=== PATIENT | male | born 1995 | race African-American/Black ===

== ENCOUNTER 2019-02-18 23:39 | Emergency (ER) | payer OTHER, MEDICAID, SELFPAY ==
[2019-02-18 23:52] VITALS: BP 140/87; PULSE 68; RESP 14; TEMP 37.1; O2SAT 100; BMI 27.3
--- NOTE | 2019-02-19 00:24 | PC.NURSE ---
Pt refuses to speak to nursing staff. States I just have some things i want to talk to a doctor about.
--- NOTE | 2019-02-19 00:38 | ED_ITS ---
HPI - Fever General Chief Complaint: Fever Stated Complaint: feeling shivers/cold inside Time Seen by Provider: 02/19/19 00:24 Source: patient Mode of arrival: ambulatory Limitations: no limitations History of Present Illness HPI Narrative: Patient is 23-year-old male who presents with with a complaint he had body aches ongoing the last 2 days. Unsure if he had a fever he denies any sore throat belly pain cough shortness of breath chest pain. He says that his ?Man parts feel little weird he wants to make sure they are okay. He denies any gross pus or testicle pain. He states he does have some painful burning sensation at the urethra when he urinates. Related Data Allergies Allergy/AdvReac Type Severity Reaction Status Date / Time No Known Drug Allergies Allergy Verified 02/18/19 23:57 Review of Systems Review of Systems GENERAL: Denies chills, fatigue, malaise, fever, sweats, travel HEENT: Denies sinus pain, ear pain, sore throat, difficulty swallowing, neck pain RESPIRATORY: Denies dyspnea, cough, wheezing, hemoptysis, sputum. CARDIOVASCULAR: Denies chest pain, palpitations, orthopnea, edema GASTROINTESTINAL: Denies nausea, vomiting, abdominal pain, diarrhea, constipation, melena. : See HPI MUSCULOSKELETAL: Denies weakness, joint pain, or bony pain SKIN: No rash, no erythema, no pruritus NEUROLOGIC: Denies weakness, dizziness, headache, numbness, change in speech, confusion PSYCHIATRIC: No concerning psychosocial issues. 12 point review of systems is negative except for those stated above and HPI FOR[facility], LATER [facility] Medical History Chronic abdominal pain (Acute) Social History Smoking Status: Current every day smoker Social History Smoking Status: Current every day smoker Exam Initial Vital Signs Initial Vital Signs: Vital Signs Temperature 98.8 F 02/18/19 23:52 Pulse Rate 68 02/18/19 23:52 Respiratory Rate 14 02/18/19 23:52 Blood Pressure 140/87 02/18/19 23:52 Pulse Oximetry 100 02/18/19 23:52 GENERAL: Well-appearing, well-nourished and in no acute distress. HEENT: Head atraumatic,EOMI, pupils reactive, face symmetric, moist mucous membranes CARDIOVASCULAR: Regular rate and rhythm without murmurs, rubs or gallops. RESPIRATORY: Breath sounds equal bilaterally, no wheezes rales or rhonchi. ABDOMEN: Soft, nontender. Normoactive bowel sounds all 4 quadrants. No guarding or rebound. : No testicle tenderness no erythema marked. No gross pus that meatus nurse Anjum present for exam. EXTREMITIES: Normal range of motion, no clubbing or edema. Neurovascularly intact NEUROLOGICAL: Alert and oriented x4.Normal gait and speech. Cranial nerves II through XII grossly intact. SKIN: Warm, dry, no laceration, no petechiae, no rashes or lesions. Course Orders Ordered: ED Orders 02/19/19 00:55 Urinalysis and Microscopic Stat Urine Chlamydia Gonorrhea PCR Stat Vital Signs - 8 hr 02/18/19 23:52 02/19/19 02:36 Temperature 98.8 F Pulse Rate 68 78 Respiratory Rate 14 14 Blood Pressure 140/87 138/82 Pulse Oximetry 100 99 MDM - Fever Lab Data Attestation: I reviewed the patient's lab results. Lab Results 02/19/19 02/19/19 Range/Units 00:55 00:55 Urine Color Yellow Urine Appearance Clear Urine pH 7.5 (4.5-8.0) Ur Specific [place] 1.025 (1.000-1.035) Urine Protein Negative (Negative) Urine Glucose (UA) Negative (Negative) g/dL Urine Ketones Negative (NEGATIVE) Urine Occult Blood Negative (Negative) Urine Nitrate Negative (Negative) Urine Bilirubin Negative (NEGATIVE) Urine Urobilinogen 0.2 (0.2) E.U./dL Ur Leukocyte Esterase Negative (NEGATIVE) Urine RBC None seen (0-5/HPF) Urine WBC None seen (0-5/HPF) Urine Bacteria None seen (None) Ur Culture Indicated? Cult not indicated Micro UA Comment Microscopic normal Ur Chlamydia DNA (PCR) Not detected N gonorrhoeae DNA (PCR) Not detected MDM Narrative Medical decision making narrative: Patient has possible cystitis versus other viral syndrome. Urine and gonorrhea chlamydia is negative. Recommend outpatient follow-up. He is given a card to get in contact with new PCP. Discharge Plan Departure Patient Disposition: Home Clinical Impression: Cystitis, Acute viral syndrome Discharge Date/Time: 02/19/19 02:40 Interventions: ED Discharge Assessment Last Done: 02/19/19 02:36 Instructions: DI for Viral Syndrome Activity Restrictions/Additional Instructions: *You have been diagnosed with viral syndrome *What to do: At this time her urine is negative. No other signs or symptoms of bacterial infection. This is possibly a viral infection. Continue to rest increase fluid Tylenol or Motrin as directed if needed for fever *Continue to take medications as directed *Follow up with your primary care provider in 2-3 days *Return to ER if you should have any new, worsening or concerning symptoms
--- NOTE | 2019-02-19 00:43 | PC.NURSE ---
Pt reports pain in the urethra at tip of penis.
[2019-02-19 00:58] LABS: Bacteria Urine None Seen; RBC Urine None Seen (0-5/HPF); WBC Urine None Seen (0-5/HPF)
[2019-02-19 01:08] LABS: Appearance Urine UA CLEAR; Bilirubin Urine UA NEGATIVE (NEGATIVE); Color Urine UA YELLOW; Glucose Urine UA NEGATIVE (Negative); Ketones Urine UA NEGATIVE (NEGATIVE); Leukocyte Esterase Urine UA NEGATIVE (NEGATIVE); Nitrite Urine UA NEGATIVE (Negative); Occult Blood Urine UA NEGATIVE (Negative); Protein Urine UA NEGATIVE (Negative); Specific Gravity Urine UA 1.025 (1.000-1.035); Urobilinogen Urine UA 0.2 E.U./dL (0.2); pH Urine UA 7.5 (4.5-8.0)
[2019-02-19 01:09] LABS: Urine Comments Microscopic Normal
[2019-02-19 01:10] LABS: Culture Indicated Urine Cult Not Indicated
--- NOTE | 2019-02-19 02:24 | PC.NURSE ---
Pt updated on urine dip results and timing for additional lab results to be resulted. Pt denies needs at this time.
[2019-02-19 02:26] LABS: Urine N gonorrhoeae NOT DETECTED
[2019-02-19 02:27] LABS: Urine Chlamydia NOT DETECTED
[2019-02-19 02:36] VITALS: BP 138/82; PULSE 78; RESP 14; O2SAT 99
== END 2019-02-19 02:40 | disposition home or self-care (01) ==
PROVIDERS: Emergency Provider Emergency Medicine
DX: N30.90 Cystitis, unspecified without hematuria (principal); B34.9 Viral infection, unspecified
CPT/HCPCS: 81001; 87491; 87591; 99282

== ENCOUNTER 2019-08-23 11:08 | Emergency (ER) | payer OTHER, MEDICAID, SELFPAY ==
[2019-08-23 11:13] VITALS: BP 124/61; PULSE 61; RESP 15; TEMP 36.3; O2SAT 99; BMI 26.1
[2019-08-23 11:30] LABS: Add Manual Diff / Slide Review NO; Basophils Absolute Auto 100 /uL (0-100); Basophils Percent Auto 0.7 % (0-2); Eosinophils Absolute Auto 200 /uL (0-450); Hematocrit 47.7 % (41-53); Hemoglobin 16.7 g/dL (13.5-17.5); Lymphocytes Absolute Auto 2000 /uL (1100-4500); Lymphocytes Percent Auto 22.9 % (25-40); Mean Corpuscular HGB Conc 34.9 % (30-36); Mean Corpuscular Hemoglobin 32.2 PG (26-34); Mean Corpuscular Volume 92.3 fL (80-100); Monocytes Absolute Auto 700 /uL (0-900); Monocytes Percent Auto 7.8 % (3-14); Neutrophils Absolute Auto 5700 /uL (1500-7000); Neutrophils Percent Auto 66.6 % (50-75); Platelet Count 172 X10^3/uL (150-400); Red Blood Cell Count 5.17 X10^6/uL (4.5-5.9); Red Cell Distribution Width 12.8 % (11.6-14.8); White Blood Cell Count 8.5 X10^3/uL (4.5-11.0)
[2019-08-23 11:41] LABS: Amylase 95 U/L (30-110)
--- NOTE | 2019-08-23 12:00 | ED_ITS ---
HPI - Abdominal Pain <ADELE Shelby-BC - Last Filed: 08/23/19 16:56> General Chief Complaint: Abdominal Pain Stated Complaint: abdominal pain Time Seen by Provider: 08/23/19 11:15 Source: patient Mode of arrival: Ambulatory Limitations: no limitations History of Present Illness HPI narrative: The patient is a 24-year-old male current smoker with history of chronic abdominal pain who presents with a chief complaint of left lower quadrant pain. He states he has had episodes of this since left lower quadrant pain childhood. He states he has had 3-4 episodes per year, but then changed his diet and then has not had pain in 6-12 months. Sees a muffler tender in [place], but is not sure who. States he sees a primary care provider in [place], but is not sure who. He states that he has had multiple CTs and a colonoscopy regarding this pain in the past. States he has had multiple episodes of lab work done in the past. He states he started having pain really bad this morning, had some nausea and vomited to try to make himself feel better. Has not taken anything. States his last bowel movement was today and normal. Denies any fevers. States that nobody has any idea why he has these episodes of pain and he is frustrated. Denies any dysuria urgency or frequency. Questions why I asked about dysuria. Related Data Previous Rx's Medication Instructions Recorded ketorolac 10 mg PO TID PRN #15 tab 08/23/19 ondansetron 4 mg PO Q6H PRN #14 tab 08/23/19 Allergies Allergy/AdvReac Type Severity Reaction Status Date / Time No Known Drug Allergies Allergy Verified 08/23/19 11:13 Review of Systems <TRACY Shelby - Last Filed: 08/23/19 16:56> Review of Systems Narrative: GENERAL: Denies chills, fatigue, malaise, fever, sweats. HEENT: Denies sinus pain, ear pain, sore throat, difficulty swallowing, dizziness. RESPIRATORY: Denies dyspnea, cough, wheezing, hemoptysis, sputum. CARDIOVASCULAR: Denies chest pain, palpitations, orthopnea, edema, GASTROINTESTINAL: See HPI : Denies dysuria, frequency, incontinence, hematuria, urinary retention. MUSCULOSKELETAL: denies weakness, joint pain, or bony pain SKIN: Denies rash, skin lesions, or other NEUROLOGIC: Denies weakness, headache, numbness, change in speech, confusion, seizures, incoordination. PSYCHIATRIC: No concerning psychosocial issues. 12 point review of systems is negative except for those stated above Patient History <ESTRELLA Shelby - Last Filed: 08/23/19 16:56> Medical History Chronic abdominal pain (Acute) Social History Smoking Status: Current every day smoker Smoking Status: Current every day smoker alcohol intake frequency: 0-2 drinks per day Substance Use Type: marijuana Exam <ESTRELLA Shelby - Last Filed: 08/23/19 16:56> Narrative Exam Narrative: GENERAL: This is a well-nourished, well-developed patient, in no acute distress appears to be texting on cell phone HEAD: Atraumatic. Normocephalic. No temporal or scalp tenderness. EYES: Pupils equal round and reactive. Extraocular motions intact. No scleral icterus. No injection or drainage. ENT: Nose without bleeding, purulent drainage or septal hematoma. Throat without erythema, tonsillar hypertrophy or exudate. Uvula midline. Airway patent. NECK: Trachea midline. No JVD or lymphadenopathy. Supple, nontender, no me ningeal signs. CARDIOVASCULAR: Regular rate and rhythm RESPIRATORY: Clear to auscultation. Breath sounds equal bilaterally. No wheezes, rales, or rhonchi. No cough. No increased respiratory effort. No accessory muscle use. No stridor GASTROINTESTINAL: Abdomen soft, diffuse tenderness left lower quadrant pain, nondistended. No hepato-splenomegaly, or palpable masses. No guarding. Active bowel sounds all 4 quadrants. Negative Holman, no pain at McBurney's point. EXTREMITIES: No clubbing, cyanosis, or edema. No joint tenderness, effusion, or edema noted. BACK: Nontender without deformity or crepitance. No flank tenderness. No CVA tenderness bilaterally. NEURO: AOx3. Steady gait. Using all extremities equally. SKIN: No rash or erythema on visible skin Initial Vital Signs Initial Vital Signs: Vital Signs Temperature 97.3 F L 08/23/19 11:13 Pulse Rate 61 12/19/19 11:13 Respiratory Rate 15 08/23/19 11:13 Blood Pressure 124/61 08/23/19 11:13 Pulse Oximetry 99 08/23/19 11:13 <Katheryn Allen MD - Last Filed: 08/23/19 18:49> Initial Vital Signs Initial Vital Signs: Vital Signs Temperature 97.3 F L 08/23/19 11:13 Pulse Rate 61 08/23/19 11:13 Respiratory Rate 15 08/23/19 11:13 Blood Pressure 124/61 08/23/19 11:13 Pulse Oximetry 99 08/23/19 11:13 Course <TRACY Shelby - Last Filed: 08/23/19 16:56> Orders Ordered: ED Orders 08/23/19 11:24 Urine Drug Screen, Rapid Stat 08/23/19 11:25 Amylase Stat Complete Blood Count AUTO DIFF Stat Comprehensive Metabolic Panel Stat Lipase Stat Discontinued Medications Sodium Chloride (Normal Saline 0.9%) 1,000 mls @ 1,000 mls/hr IV BOLUS ONE Stop: 08/23/19 13:17 Last Infusion: 08/23/19 13:21 Dose: 0 mls/hr Documented by: Admin: 08/23/19 12:23 Dose: 1,000 mls/hr Documented by: VANESSA Ketorolac Tromethamine (Toradol) 30 mg IV NOW ONE Stop: 08/23/19 12:52 Last Admin: 08/23/19 13:01 Dose: 30 mg Documented by: VANESSA Ondansetron HCl (Zofran) 4 mg IV NOW ONE Stop: 08/23/19 11:30 Last Admin: 08/23/19 12:13 Dose: Not Given Documented by: VANESSA Vital Signs Vital signs: Vital Signs - 8 hr 08/23/19 11:13 08/23/19 13:38 Temperature 97.3 F L Pulse Rate 61 53 L Respiratory Rate 15 14 Blood Pressure 124/61 Blood Pressure [Right Arm] 121/74 Pulse Oximetry 99 100 <Katheryn Allen MD - Last Filed: 08/23/19 18:49> Orders Ordered: ED Orders 08/23/19 11:24 Urine Drug Screen, Rapid Stat 08/23/19 11:25 Amylase Stat Complete Blood Count AUTO DIFF Stat Comprehensive Metabolic Panel Stat Lipase Stat Discontinued Medications Sodium Chloride (Normal Saline 0.9%) 1,000 mls @ 1,000 mls/hr IV BOLUS ONE Stop: 08/23/19 13:17 Last Infusion: 08/23/19 13:21 Dose: 0 mls/hr Documented by: Admin: 08/23/19 12:23 Dose: 1,000 mls/hr Documented by: VANESSA Ketorolac Tromethamine (Toradol) 30 mg IV NOW ONE Stop: 08/23/19 12:52 Last Admin: 08/23/19 13:01 Dose: 30 mg Documented by: VANESSA Ondansetron HCl (Zofran) 4 mg IV NOW ONE Stop: 08/23/19 11:30 Last Admin: 08/23/19 12:13 Dose: Not Given Documented by: VANESSA Vital Signs Vital signs: Vital Signs - 8 hr 08/23/19 11:13 08/23/19 13:38 Temperature 97.3 F L Pulse Rate 61 53 L Respiratory Rate 15 14 Blood Pressure 124/61 Blood Pressure [Right Arm] 121/74 Pulse Oximetry 99 100 MDM - Abdominal Pain <ADELE Shelby-BC - Last Filed: 08/23/19 16:56> Lab Data Result diagrams: 08/23/19 11:25 08/23/19 11:25 Labs: Lab Results 08/23/19 08/23/19 08/23/19 Range/Units 11:24 11:25 11:25 WBC 8.5 (4.5-11.0) X10^3/uL RBC 5.17 (4.5-5.9) X10^6/uL Hgb 16.7 (13.5-17.5) g/dL Hct 47.7 (41-53) % MCV 92.3 (80-100) fL MCH 32.2 (26-34) PG MCHC 34.9 (30-36) % RDW 12.8 (11.6-14.8) % Plt Count 172 (150-400) X10^3/uL Neut % (Auto) 66.6 (50-75) % Lymph % (Auto) 22.9 L (25-40) % [place] % (Auto) 7.8 (3-14) % Eos % (Auto) 2.0 (2-4) % Baso % (Auto) 0.7 (0-2) % Neut # (Auto) 5700 (5053-5113) /uL Lymph # (Auto) 2000 (2270-6681) /uL [place] # (Auto) 700 (0-900) /uL Eos # (Auto) 200 (0-450) /uL Baso # (Auto) 100 (0-100) /uL Sodium 139 (137-145) mmol/L Potassium 4.1 (3.4-5.1) mmol/L Chloride 106 (98-107) mmol/L Carbon Dioxide 25 (22-32) mmol/L BUN 13 (9-20) mg/dL Creatinine 0.80 (0.66-1.25) mg/dL Estimated GFR > 60.0 (>60) mL/min BUN/Creatinine Ratio 16.3 (6-22) Glucose 103 H (70-100) mg/dL Calcium 9.1 (8.4-10.2) mg/dL Total Bilirubin 0.8 (0.2-1.3) mg/dL AST 39 (17-59) IU/L ALT 38 (<50) IU/L Alkaline Phosphatase 114 (38-126) U/L Total Protein 7.6 (6.3-8.2) g/dL Albumin 4.2 (3.5-5.0) g/dL Globulin 3.4 (1.7-4.1) g/dL Albumin/Globulin Ratio 1.2 (1.0-2.8) Amylase (30-110) U/L Lipase 128 (23-300) U/L U Morph 300 ng/mL cutoff Negative (Negative) Ur Oxycodone Screen Negative (Negative) Urine Methadone Screen Negative (Negative) Ur Barbiturates Screen Negative (Negative) U Tricyclic Antidepress Negative (Negative) Ur Phencyclidine Scrn Negative (Negative) Ur Amphetamines Screen Negative (Negative) U Methamphetamines Scrn Negative (Negative) Ur MDMA Scrn (Ecstasy) Negative (Negative) U Benzodiazepines Scrn Negative (Negative) Urine Cocaine Screen Negative (Negative) U Marijuana (THC) Screen Positive H (Negative) 08/23/19 Range/Units 11:25 WBC (4.5-11.0) X10^3/uL RBC (4.5-5.9) X10^6/uL Hgb (13.5-17.5) g/dL Hct (41-53) % MCV (80-100) fL MCH (26-34) PG MCHC (30-36) % RDW (11.6-14.8) % Plt Count (150-400) X10^3/uL Neut % (Auto) (50-75) % Lymph % (Auto) (25-40) % [place] % (Auto) (3-14) % Eos % (Auto) (2-4) % Baso % (Auto) (0-2) % Neut # (Auto) (8231-6899) /uL Lymph # (Auto) (9123-5090) /uL [place] # (Auto) (0-900) /uL Eos # (Auto) (0-450) /uL Baso # (Auto) (0-100) /uL Sodium (137-145) mmol/L Potassium (3.4-5.1) mmol/L Chloride (98-107) mmol/L Carbon Dioxide (22-32) mmol/L BUN (9-20) mg/dL Creatinine (0.66-1.25) mg/dL Estimated GFR (>60) mL/min BUN/Creatinine Ratio (6-22) Glucose (70-100) mg/dL Calcium (8.4-10.2) mg/dL Total Bilirubin (0.2-1.3) mg/dL AST (17-59) IU/L ALT (<50) IU/L Alkaline Phosphatase (38-126) U/L Total Protein (6.3-8.2) g/dL Albumin (3.5-5.0) g/dL Globulin (1.7-4.1) g/dL Albumin/Globulin Ratio (1.0-2.8) Amylase 95 (30-110) U/L Lipase (23-300) U/L U Morph 300 ng/mL cutoff (Negative) Ur Oxycodone Screen (Negative) Urine Methadone Screen (Negative) Ur Barbiturates Screen (Negative) U Tricyclic Antidepress (Negative) Ur Phencyclidine Scrn (Negative) Ur Amphetamines Screen (Negative) U Methamphetamines Scrn (Negative) Ur MDMA Scrn (Ecstasy) (Negative) U Benzodiazepines Scrn (Negative) Urine Cocaine Screen (Negative) U Marijuana (THC) Screen (Negative) Point of care testing: Urine Dip Bedside Urine Glucose Negative Bedside Urine Bilirubin - Negative Bedside Urine Ketone - Negative Urine Specific [place] 1.015 Bedside Urine Occult Blood - Negative Bedside Urine pH 7.0 Bedside Urine Protein - Negative Bedside Urine Urobilinogen - Negative Bedside Urine Nitrite - Negative Bedside Urine Leukocytes - Negative Esterase MDM Narrative Medical decision making narrative: The patient is a 24-year-old male who presents with a chief complaint of left-sided pain. He states he has had episodes of this left lower quadrant pain since he was a child, though has not had an episode since changing his diet the past year. He has not spoken with his primary care provider or his muffler tender since pain reoccurred today. He states that ?I have things to do and can just go to [place] to see them. Basic lab work was drawn, showing normal renal function and no leukocytosis. The patient has generalized pain to palpation, but does not appear to have an acute abdomen on exam. Initially he declined a CT scan, stating he has had many CTs in the past and they never show anything. The patient's exam is reassuring, no leukocytosis helps rule out acute diverticulitis or appendicitis, as does his exam. This is further supported by the chronic nature of his pain which has been going on for decades, given that he has had episodes of left-sided abdominal pain since childhood. I discussed a trial of Toradol, and offered Zofran given that he had vomited today. The patient declined Zofran, and question why it was even offered. I stated it was offered due to his vomiting earlier today. I discussed at length that Toradol might help inflammation, but that he should really follow up with primary care provider as well as his muffler tender, especially given that he is refusing a CT scan and the chronic nature of his pain. The patient requested to see a physician, stated that he did not come to the emergency department to see a nurse. I discussed as a nurse practitioner I am able to see patients and resource the physician on- call during that shift as needed. I offered to speak to Dr Allen, but discussed that she is in the middle of a procedure at that moment time. I discussed with the patient the nature of acuity, and that his stable vital signs and lab work are reassuring. I returned to the room with HARRIET Casanova as standby, and discussed that Dr. Allen would be able to see him, though it be a weight as she has several procedures to do on critically ill patients. The patient states that he is critically ill himself, and he is not happy that he has to wait to see a physician. I apologized for the wait, but stated that I would be happy to order a CT scan to evaluate his abdominal pain in the meantime. Patient again declined CT scan. Patient was offered MD evaluation in addition to this COMPRESSOR REPAIRER evaluation, but declined to wait. He elected to leave the emergency department, I discussed at length the importance of follow-up with primary care provider as well as his muffler tender. The patient declined to wait for MD evaluation, and declined a CT scan. The patient was able to ambulate outside the emergency department without difficulty. Throughout his stay, the patient remained normotensive, afebrile, on his cell phone with no signs of tachycardia or hypertension. <Katheryn Allen MD - Last Filed: 08/23/19 18:49> Lab Data Labs: Lab Results 08/23/19 08/23/19 08/23/19 Range/Units 11:24 11:25 11:25 WBC 8.5 (4.5-11.0) X10^3/uL RBC 5.17 (4.5-5.9) X10^6/uL Hgb 16.7 (13.5-17.5) g/dL Hct 47.7 (41-53) % MCV 92.3 (80-100) fL MCH 32.2 (26-34) PG MCHC 34.9 (30-36) % RDW 12.8 (11.6-14.8) % Plt Count 172 (150-400) X10^3/uL Neut % (Auto) 66.6 (50-75) % Lymph % (Auto) 22.9 L (25-40) % [place] % (Auto) 7.8 (3-14) % Eos % (Auto) 2.0 (2-4) % Baso % (Auto) 0.7 (0-2) % Neut # (Auto) 5700 (0255-1927) /uL Lymph # (Auto) 2000 (4503-3414) /uL [place] # (Auto) 700 (0-900) /uL Eos # (Auto) 200 (0-450) /uL Baso # (Auto) 100 (0-100) /uL Sodium 139 (137-145) mmol/L Potassium 4.1 (3.4-5.1) mmol/L Chloride 106 (98-107) mmol/L Carbon Dioxide 25 (22-32) mmol/L BUN 13 (9-20) mg/dL Creatinine 0.80 (0.66-1.25) mg/dL Estimated GFR > 60.0 (>60) mL/min BUN/Creatinine Ratio 16.3 (6-22) Glucose 103 H (70-100) mg/dL Calcium 9.1 (8.4-10.2) mg/dL Total Bilirubin 0.8 (0.2-1.3) mg/dL AST 39 (17-59) IU/L ALT 38 (<50) IU/L Alkaline Phosphatase 114 (38-126) U/L Total Protein 7.6 (6.3-8.2) g/dL Albumin 4.2 (3.5-5.0) g/dL Globulin 3.4 (1.7-4.1) g/dL Albumin/Globulin Ratio 1.2 (1.0-2.8) Amylase (30-110) U/L Lipase 128 (23-300) U/L U Morph 300 ng/mL cutoff Negative (Negative) Ur Oxycodone Screen Negative (Negative) Urine Methadone Screen Negative (Negative) Ur Barbiturates Screen Negative (Negative) U Tricyclic Antidepress Negative (Negative) Ur Phencyclidine Scrn Negative (Negative) Ur Amphetamines Screen Negative (Negative) U Methamphetamines Scrn Negative (Negative) Ur MDMA Scrn (Ecstasy) Negative (Negative) U Benzodiazepines Scrn Negative (Negative) Urine Cocaine Screen Negative (Negative) U Marijuana (THC) Screen Positive H (Negative) 08/23/19 Range/Units 11:25 WBC (4.5-11.0) X10^3/uL RBC (4.5-5.9) X10^6/uL Hgb (13.5-17.5) g/dL Hct (41-53) % MCV (80-100) fL MCH (26-34) PG MCHC (30-36) % RDW (11.6-14.8) % Plt Count (150-400) X10^3/uL Neut % (Auto) (50-75) % Lymph % (Auto) (25-40) % [place] % (Auto) (3-14) % Eos % (Auto) (2-4) % Baso % (Auto) (0-2) % Neut # (Auto) (5041-5463) /uL Lymph # (Auto) (5125-4805) /uL [place] # (Auto) (0-900) /uL Eos # (Auto) (0-450) /uL Baso # (Auto) (0-100) /uL Sodium (137-145) mmol/L Potassium (3.4-5.1) mmol/L Chloride (98-107) mmol/L Carbon Dioxide (22-32) mmol/L BUN (9-20) mg/dL Creatinine (0.66-1.25) mg/dL Estimated GFR (>60) mL/min BUN/Creatinine Ratio (6-22) Glucose (70-100) mg/dL Calcium (8.4-10.2) mg/dL Total Bilirubin (0.2-1.3) mg/dL AST (17-59) IU/L ALT (<50) IU/L Alkaline Phosphatase (38-126) U/L Total Protein (6.3-8.2) g/dL Albumin (3.5-5.0) g/dL Globulin (1.7-4.1) g/dL Albumin/Globulin Ratio (1.0-2.8) Amylase 95 (30-110) U/L Lipase (23-300) U/L U Morph 300 ng/mL cutoff (Negative) Ur Oxycodone Screen (Negative) Urine Methadone Screen (Negative) Ur Barbiturates Screen (Negative) U Tricyclic Antidepress (Negative) Ur Phencyclidine Scrn (Negative) Ur Amphetamines Screen (Negative) U Methamphetamines Scrn (Negative) Ur MDMA Scrn (Ecstasy) (Negative) U Benzodiazepines Scrn (Negative) Urine Cocaine Screen (Negative) U Marijuana (THC) Screen (Negative) Point of care testing: Urine Dip Bedside Urine Glucose Negative Bedside Urine Bilirubin - Negative Bedside Urine Ketone - Negative Urine Specific [place] 1.015 Bedside Urine Occult Blood - Negative Bedside Urine pH 7.0 Bedside Urine Protein - Negative Bedside Urine Urobilinogen - Negative Bedside Urine Nitrite - Negative Bedside Urine Leukocytes - Negative Esterase Discharge Plan Departure Patient Disposition: Home Clinical Impression: Abdominal pain Qualifiers: Abdominal location: generalized Qualified Code(s): R10.84 - Generalized abdominal pain Discharge Date/Time: 08/23/19 14:26 Instructions: DI for Abdominal Pain-Adult Activity Restrictions/Additional Instructions: Please follow-up with primary care provider as well as your GI specialist Please come back to the emergency department for acute concerns such as fever with abdominal pain, inability keep down fluids etc. I've given you contact information in the health coordinator. They can help arrange for primary care provider in the area I have given you a prescription of Toradol. This is an NSAID. Do not combine it with other NSAIDs such as Aleve or ibuprofen. I suggest taking it with some food, as it can irritate your stomach. Prescriptions: New ketorolac 10 mg tablet 10 mg PO TID PRN (Reason: pain) Qty: 15 RF: 0 ondansetron 4 mg tablet,disintegrating 4 mg PO Q6H PRN (Reason: nausea and vomiting) Qty: 14 RF: 0 Referrals: [facility] [Outside]
[2019-08-23] MEDS: SODIUM CHLORIDE 0.9% 1,000 ML 1000 ML IV (12:23)
[2019-08-23 12:37] LABS: UR Morphine/Opiate cutoff 300 Negative (Negative); Ur Creatinine Normal (Normal); Ur Specific Gravity Normal (Normal); Urine Amphetamines Negative (Negative); Urine Barbiturates Negative (Negative); Urine Benzodiazepines Negative (Negative); Urine Cocaine Negative (Negative); Urine MDMA Negative (Negative); Urine Methadone Negative (Negative); Urine Methamphetamines Negative (Negative); Urine Oxycodone Negative (Negative); Urine Phencyclidine Negative (Negative); Urine Tetrahydrocannabinol Positive (Negative); Urine Tricyclic Antidepressant Negative (Negative); Urine pH Normal (Normal)
[2019-08-23 12:50] LABS: Alanine Aminotransferase 38 IU/L (<50); Albumin 4.2 g/dL (3.5-5.0); Albumin Globulin Ratio 1.2 (1.0-2.8); Alkaline Phosphatase 114 U/L (38-126); Aspartate Aminotransferase 39 IU/L (17-59); BUN Creatinine Ratio 16.3 (6-22); Bilirubin Total 0.8 mg/dL (0.2-1.3); Blood Urea Nitrogen 13 mg/dL (9-20); Calcium 9.1 mg/dL (8.4-10.2); Carbon Dioxide 25 mmol/L (22-32); Chloride 106 mmol/L (98-107); Estimated Glomerular Filt Rate > 60.0 mL/min (>60); Globulin 3.4 g/dL (1.7-4.1); Glucose 103 mg/dL (70-100); HEMOLYSIS 21 (0-50); Lipase 128 U/L (23-300); Potassium 4.1 mmol/L (3.4-5.1); Sodium 139 mmol/L (137-145); Total Protein 7.6 g/dL (6.3-8.2)
[2019-08-23] MEDS: KETOROLAC 60 MG/2 ML VIAL 30 MG IV (13:01)
[2019-08-23 13:38] VITALS: BP 121/74; PULSE 53; RESP 14; O2SAT 100
--- NOTE | 2019-08-23 14:08 | PC.NURSE ---
pt on cell phone in room, had been discharged. waiting for paper work, asked him to go to [facility] so we can put him in a room for discharged pt and just needing papers. he had an attitude about this and apparently staff had hard time with his attitude and being verbally abusive to staff. pt given paperwork and discharged.
--- NOTE | 2019-08-23 14:18 | PC.NURSE ---
Pt arrived c/o abd pain. reports this pain has been on and off intermittently all his life and he needs to see a GI but the GI is in [place] and im an adult and i have a life and i have things to do and i cant go to [place] to see one. IV placed and labs sent by Jennyfer LARIOS. Pt refusing to change into gown. refused zofran. reports im not nauseous i just have pain. Medicated with torodol and fluids infused. Refusing Abd CT. Reports his pain is not improved. pt starting to get verbally aggressive with staff. Demanding to see a doctor. Advised his provider is Khushbu Harden NP. Pt states yea i dont know why nurses keep coming in here i need a doctor i didnt come here to see a nurse. Dr Allen made aware and advised that it would be multiple hours until she is able to see patient. Fina and this RN in room to explain plan of care to patient. Pt stated to nurse i didnt ask for your opinion or for you to butt in. Fina explained how patients are seen by acuity and his labs and urine appear normal and that he refused all other treatment so he will be discharged home to follow up with PCP/GI or he cant wait the additional hours to see Dr Allen. Pt appeared to not be satisfied with treatment. Asking to speak to industrial cafeteria manager. Given information on how to contact Chapis Vargas.
== END 2019-08-23 14:26 | disposition home or self-care (01) ==
PROVIDERS: Emergency Medicine; Emergency Provider Nurse Practitioner Family
DX: R10.84 Generalized abdominal pain (principal)
CPT/HCPCS: 36415; 80053; 80305; 81003; 82150; 83690; 85025; 99283; 99284; J1885